=== PATIENT | male | born 1955 | race Caucasian/White ===

== ENCOUNTER 2017-04-21 08:48 | Day surgery (SDC) | payer BC, OTHER ==
[~2017-04-21 08:48] MED LIST: Lactated Ringers 1,000 ML IV SCH; Sodium Chloride 0.9% 10 ML Syringe FLUSH PRN; Sodium Chloride 0.9% 2.5 ML Syringe FLUSH PRN
--- NOTE | 2017-04-21 09:21 | PCM.PREANE ---
Preanesthetic Assessment - Anesthesia/Transfusion/Family Hx Anesthesia History: Prior Anesthesia Without Reaction Family History of Anesthesia Reaction: No Transfusion History: No Prior Transfusion(s) Intubation History: Unknown - Review of Systems General: No Symptoms Pulmonary: No Symptoms Cardiovascular: No Symptoms Gastrointestinal: No Symptoms, Other (h/o colon polyps) Neurological: No Symptoms Other: Reports: None - Physical Assessment O2 Sat by Pulse Oximetry: 95 Respiratory Rate: 16 Vital Signs: Last Vital Signs Temp 36.5 C 04/21/17 09:05 Pulse 58 L 04/21/17 09:05 Resp 16 04/21/17 09:05 BP 142/80 H 04/21/17 09:05 Pulse Ox 95 04/21/17 09:05 Height: 1.8 m Weight: 99.79 kg ASA Class: 3 Mental Status: Alert & Oriented x3 Airway Class: Mallampati = 2 Dentition: Reports: Normal Dentition Thyro-Mental Finger Breadths: 2 Mouth Opening Finger Breadths: 2 ROM/Head Extension: Full Lungs: Decreased Breath Sounds, Crackles Cardiovascular: Regular Rate, Regular Rhythm - Allergies Allergies/Adverse Reactions: Allergies Allergy/AdvReac Type Severity Reaction Status Date / Time amoxicillin Allergy Airway Verified 04/20/17 11:55 Tightness azithromycin Allergy Hives Verified 04/20/17 11:55 multivitamin Allergy Hives Uncoded 04/20/17 11:55 - Blood Blood Available: No - Anesthesia Plan Pre-Op Medication Ordered: None Beta Esther: Carvedilol Med Last Dose Date: 04/21/17 Med Last Dose Time: 06:30 - Acknowledgements Anesthesia Type Planned: MAC Pt an Appropriate Candidate for the Planned Anesthesia: Yes Alternatives and Risks of Anesthesia Discussed w Pt/Guardian: Yes Pt/Guardian Understands and Agrees with Anesthesia Plan: Yes PreAnesthesia Questionnaire HEENT History: Reports: Cataract Other HEENT History: wears glasses Cardiovascular History: Reports: CAD, Cardiomyopathy, Heart Failure, VT (12/15- no significat blockages on coronary angiogram) Other Cardiovascular History: left ventricular hypertrophy, tricuspid regurgitation Respiratory History: Reports: COPD (he can walk slowly 100-150 feet (stops due to SOB)), Sleep Apnea Other Respiratory History: uses CPAP, was on oxygen at night before CPAP Gastrointestinal History: Reports: Colon Polyp Musculoskeletal History: Reports: Back Pain, Chronic, Fracture Endocrine/Metabolic History: Reports: Obesity/BMI 30+ Hematologic History: Reports: Other (See Below) Other Hematologic History: Polycythemia Vera - Past Surgical History Head Surgeries/Procedures: Other Cardiovascular Surgeries/Procedures: angiogram GI Surgical History: Reports: Colonoscopy (x3, last one 6 years ago), Other ( See Below) Other GI Surgeries/Procedures: I&D perianal abscess - SUBSTANCE USE Smoking Status *Q: Former Smoker (quit smoking 12/15, was heavy smoker before) Tobacco Use Within Last Twelve Months: Cigarettes Number of Drinks Per Day: 1 Recreational Drug Use History: No - HOME MEDS Home Medications: Home Meds Aspirin [Low Dose Aspirin EC] 81 mg PO DAILY 04/20/17 [History] Carvedilol 25 mg PO BID 04/20/17 [History] Cholecalciferol (Vitamin D3) [Vitamin D3] 2,000 units PO DAILY 04/20/17 [History ] Fluticasone/Vilanterol [Breo Ellipta 100-25 MCG Inhalation Kit] 1 puff INH DAILY 04/20/17 [History] Furosemide 20 mg PO DAILY 04/20/17 [History] Ramipril 10 mg PO DAILY 04/20/17 [History] Umeclidinium [place] [Incruse Ellipta*] 1 puff INH DAILY 04/20/17 [History] atorvaSTATin Calcium [Atorvastatin Calcium] 10 mg PO DAILY 04/20/17 [History] - CURRENT (IN HOUSE) MEDS Current Meds: Current Medications Lactated Ringer's (Ringers, Lactated) 1,000 mls @ 125 mls/hr IV ASDIRECTED ANTONIA Last Admin: 04/21/17 09:07 Dose: 125 mls/hr Sodium Chloride (Saline Flush) 10 ml FLUSH ASDIRECTED PRN PRN Reason: Keep Vein Open Sodium Chloride (Saline Flush) 2.5 ml FLUSH ASDIRECTED PRN PRN Reason: Keep Vein Open
[2017-04-21] MEDS ORDERED: Propofol 200 MG/20 ML SDV ONE (11:12)
[2017-04-21] MEDS ORDERED: Ondansetron 4 MG/2 ML SDV ONE (11:12)
[2017-04-21] MEDS ORDERED: fentaNYL 100 MCG/2 ML SDV ONE (11:13)
[2017-04-21] MEDS ORDERED: Midazolam 1 MG/ML 2 ML SDV ONE (11:13)
--- NOTE | 2017-04-21 12:11 | PCM.OPNOTE ---
- General Post-Op/Procedure Note Date of Surgery/Procedure: 04/21/17 Operative Procedure(s): Colonoscopy Findings: 1 descending colon and 1 sigmoid colon polyp Pre Op Diagnosis: History of colon polyps Post-Op Diagnosis: Diverticulosis, 2 colon polyps Anesthesia Technique: RUFINA Primary Surgeon: Alina Holland Condition: Good
[2017-04-21 12:18] VITALS: BP 134/68
--- NOTE | 2017-04-21 23:33 | OR ---
SURGEON: ALINA HOLLAND MD DATE OF PROCEDURE: 04/21/2017 PREOPERATIVE DIAGNOSIS: History of colon polyps. POSTOPERATIVE DIAGNOSES: One descending colon polyp, one sigmoid colon polyp, diverticulosis. PROCEDURE PERFORMED: Screening colonoscopy. ENDOSCOPIST: Dr. Alina Holland. INSTRUMENT USED: Olympus colonoscope. ANESTHESIA: MAC. EXTENT OF EXAM: To the cecum. PREPARATION: Fair. LIMITATIONS: None. INDICATION FOR EXAMINATION: The patient is a 61-year-old male with a history of colon polyps, who presents for a repeat screening colonoscopy. We discussed the procedure as well as expected perioperative course. We discussed the risks, including bleeding, infection, or damage to surrounding structures, including perforation. The patient verbalized understanding and wishes to proceed. PROCEDURE IN DETAIL: The patient was brought to the endoscopy suite and placed in left lateral decubitus position. A time-out was completed verifying the patient's name, age, date of , allergies, and procedure to be performed. Monitored anesthesia care was induced and continuous oxygen was provided via face mask throughout the procedure. After adequate sedation was achieved, a digital rectal exam was performed. This exam was within normal limits. A well lubricated colonoscope was inserted into the rectum and advanced under direct visualization to the level of cecum. The cecum was identified by both visual and anatomic landmarks. A photograph was taken of the cecal cap. I was unable to retroflex the scope within the cecum. The scope was then fully withdrawn while examining the color, texture, anatomy, and integrity of the mucosa from the cecum to the anal canal. The patient was found to have diffuse diverticulosis throughout the descending and sigmoid colon. He had one descending colon and one sigmoid colon polyp. Both of these were 1 to 2 mm in size and sessile. They were removed using a cold biopsy forceps. The scope was then brought into the rectum and retroflexed to allow visualization of the anal canal opening. This appeared normal and a photograph was taken. The scope was then straightened out and removed from the patient. The cecum to anus time was 18 minutes. The patient was transferred to the recovery room in stable condition. ENDOSCOPIC DIAGNOSES: 1. Descending colon polyp. 2. Sigmoid colon polyp. 3. Diverticulosis. RECOMMENDATIONS: Follow up in the clinic in 2 weeks. LALITO VELARDE /[id number]
--- NOTE | 2017-05-17 06:18 | PCM.SN ---
- Free Text/Narrative Note: Waste correctinn 140mg, not 130mg.
== END 2017-04-21 12:15 | disposition home or self-care (01) ==
LOC: MW.SDS 08:48
PROVIDERS: ATTEND Surgery
PROC: 0DBM8ZX Excision of Descending Colon, Via Natural or Artificial Opening Endoscopic, Diagnostic (ICD-10-PCS; principal; 2017-04-21)
PROC: 0DBN8ZX Excision of Sigmoid Colon, Via Natural or Artificial Opening Endoscopic, Diagnostic (ICD-10-PCS; 2017-04-21)
DX: Z12.11 Encounter for screening for malignant neoplasm of colon (principal); D12.4 Benign neoplasm of descending colon; D12.5 Benign neoplasm of sigmoid colon; Z86.010 Personal history of colon polyps; Z88.0 Allergy status to penicillin; Z88.1 Allergy status to other antibiotic agents; Z88.8 Allergy status to other drugs, medicaments and biological substances; Z79.899 Other long term (current) drug therapy; Z87.891 Personal history of nicotine dependence
CPT/HCPCS: 45380; 88305; J2250; J2405; J3010; J7120; 00810; J2704